=== PATIENT | male | born 1990 | race Caucasian/White ===

== ENCOUNTER 2018-01-21 14:50 | Emergency (ER) | payer MEDICAID ==
--- NOTE | 2018-01-21 15:22 | EDPHY ---
H & P Stated Complaint: HEADACHE, DIZZY, "FEELING OFF" Time Seen by Provider: 01/21/18 15:20 HPI/ROS: CHIEF COMPLAINT: Headache, vision changes HISTORY OF PRESENT ILLNESS: The patient is a 27 y/o male complaining of a severe headache, peripheral vision changes, and the sensation of feeling disoriented. Symptoms began 4 hours ago while he was trying to play guitar. He noticed his peripheral vision "seemed [id number]," but he denies visual field cuts. He began to feel dizzy and faint and noticed a "pounding" headache across his forehead. He has associated nausea and belching. He denies vomiting, photophobia, recent illness, cough, cold, diarrhea, abdominal pain, fever, recent trauma. He went to urgent care for evaluation and was referred here for evaluation. He says he cannot remember the last time he had a headache and denies history of migraines. REVIEW OF SYSTEMS: A ten point review of systems was performed and is negative with the exception of the items mentioned in the HPI. Past medical history: Denies Past surgical history: Denies Family history: Noncontributory Social history: Nonsmoker. No recent alcohol use. No illicit drugs. Plays [employer] for work. General Appearance: Alert. Vital signs reviewed. Blood pressure 143/82. Eyes: Pupils equal and round, no conjunctival injection, no discharge. Anicteric. No nystagmus. ENT, Mouth: Mucous membranes are moist, no oropharyngeal erythema or edema. Neck: No lymphadenopathy, supple. Respiratory: Lungs are clear to auscultation; no wheezes, rales, or rhonchi. Cardiovascular: Regular rate and rhythm; no murmur, rub, or gallop. Gastrointestinal: Abdomen is soft and nontender, no masses or organomegaly. Skin: Warm and dry, no rashes on exposed skin, normal color. Back: Nontender to palpation over the thoracolumbar spine. No CVAT. Extremities: No lower extremity edema, no calf tenderness or swelling. Neurological: Alert and oriented. Moving all four extremities easily and equally. Cranial nerves II through XII are examined and are intact (visual acuity not tested). Strength is 5 over 5 bilaterally with testing of all major motor groups. Sensation is intact to light touch over all 4 extremities. Deep tendon reflexes are 2+ in the biceps and knees bilaterally. Gait is normal. [id number] is performed accurately. Psychiatric: Normal affect. - Personal History Current Tetanus/Diphtheria Vaccine: Unsure Current Tetanus Diphtheria and Acellular Pertussis (TDAP): Unsure - Medical/Surgical History Hx Asthma: No Hx Chronic Respiratory Disease: No Hx Diabetes: No Hx Cardiac Disease: No Hx Renal Disease: No Hx Cirrhosis: No Hx Alcoholism: No Hx HIV/AIDS: No Hx Splenectomy or Spleen Trauma: No Other PMH: DENIES - Social History Smoking Status: Never smoked Constitutional: Initial Vital Signs Temperature (C) 36.9 C 01/21/18 14:53 Heart Rate 73 01/21/18 14:53 Respiratory Rate 18 01/21/18 14:53 Blood Pressure 143/82 H 01/21/18 14:53 O2 Sat (%) 96 01/21/18 14:53 O2 Delivery Mode Room Air Allergies/Adverse Reactions: No Known Allergies Allergy (Unverified 01/21/18 14:56) Home Medications: Medication Instructions Recorded NK [No Known Home Meds] 01/21/18 Medical Decision Making - Diagnostics Imaging: Discussed imaging studies w/ housecalls nurse Radiologist, I viewed and interpreted images myself ED Course/Re-evaluation: This is a healthy 27 y/o male who presents with a 4-hour history of severe headache, vision changes, and dizziness. He has a normal neuro exam. Presentation most likely indicates a migraine. Plan for IV, labs, symptomatic management. 10mg IV Reglan, 25mg IV Benadryl, 30mg IV Toradol, and 1L IV NS ordered. Recommended head CT, which the patient declined. Reassessed patient. 5:20 p.m.. Awake and alert, moving all 4 extremities spontaneously and equally. He states that his headache is much improved but not entirely gone. Nausea is gone. Will add Tylenol. 1800: Reassessed patient. He tells me his headache actually never improved earlier and while sitting here currently he has pain as severe as when he first came in. I again suggested a CT head to rule out subarachnoid hemorrhage or other causes of headache, which he agreed to this time. He has requested one pill of Vicodin for pain, which I have ordered. Head CT is negative. Head CT in this time frame is quite accurate for SAH, but not 100%. I explained this to him. Reassessed patient and discussed findings. He continues to complain of pain and has requested an additional tab or [place] as well as a BGL test. He is concerned that his symptoms could be related to abnormal blood sugar--I do not think so and explained this to him, but he would like to have his blood sugar tested. I am complying with this request. BGL is normal. Patient is requesting to leave the department. He will be discharged with standard headache care and follow up instructions. Return precautions discussed. 2000: After discharge, we received a phone call from the patient requesting a written prescription for Vicodin. He was informed we are unable to do this, but can evaluate him in the ED at any point. Differential Diagnosis: Headache including but not limited to subarachnoid hemorrhage, migraine headache , tension headache and infectious causes such as meningitis, pharyngitis and sinusitis. I also considered drug seeking behavior, given his post-discharge phone call and request for opiates. - Data Points Medications Given: Discontinued Medications Acetaminophen (Tylenol) 1,000 mg PO EDNOW ONE Stop: 01/21/18 17:19 Last Admin: 01/21/18 17:34 Dose: 1,000 mg Hydrocodone Bitart/Acetaminophen ([place] 5/325) 1 tab PO EDNOW ONE Stop: 01/21/18 18:09 Last Admin: 01/21/18 18:19 Dose: 1 tab Hydrocodone Bitart/Acetaminophen ([place] 5/325) 1 tab PO EDNOW ONE Stop: 01/21/18 18:54 Last Admin: 01/21/18 18:56 Dose: 1 tab Diphenhydramine HCl (Benadryl Injection) 25 mg IVP EDNOW ONE Stop: 01/21/18 15:46 Last Admin: 01/21/18 16:26 Dose: 25 mg Sodium Chloride (Ns) 1,000 mls @ 0 mls/hr IV ONCE ONE; Wide Open PRN Reason: Protocol Stop: 01/21/18 15:46 Last Admin: 01/21/18 16:20 Dose: 1,000 mls Ketorolac Tromethamine (Toradol) 30 mg IVP EDNOW ONE Stop: 01/21/18 15:46 Last Admin: 01/21/18 16:21 Dose: 30 mg Metoclopramide HCl (Reglan Injection) 10 mg IVP EDNOW ONE Stop: 07/24/18 15:46 Last Admin: 01/21/18 16:24 Dose: 10 mg Point of Care Test Results: Chemistry 01/21/18 18:52 POC Glucose 104 mg/dL H mg/dL (70-100) Departure - Departure Disposition: Home, Routine, Self-Care Clinical Impression: Headache Qualifiers: Headache type: unspecified Headache chronicity pattern: acute headache Intractability: not intractable Qualified Code(s): R51 - Headache Condition: Good Instructions: Acute Headache (ED) Additional Instructions: 1. Follow up with neurologist for evaluation of your headache in the next 1-2 days. 2. Follow up with a primary care provider to establish care locally. 3. Return to the ED for any worsening of condition. Referrals: Sae Wood DO [Doctor of Osteopathy] - As per Instructions [facility],. [Clinic] - As per Instructions Report Scribed for: Fiordaliza Leung Report Scribed by: Neeta Tang Date of Report: 01/21/18 Time of Report: 15:31 Physician Review and Approval Statement: 01/21/18 15:21 Portions of this note were transcribed by the medical chemist. I, Dr. Fiordaliza Leung, personally performed the history, physical exam, and medical decision- making; and confirmed the accuracy of the information in the transcribed note.
[2018-01-21] MEDS ORDERED: KETOROLAC 30 MG/1 ML SDV IVP ONE (15:45)
[2018-01-21] MEDS ORDERED: METOCLOPRAMIDE 10 MG/2 ML VIAL IVP ONE (15:45)
[2018-01-21] MEDS ORDERED: NS 1,000 ML IV ONE (15:45)
[2018-01-21] MEDS ORDERED: ACETAMINOPHEN 500 MG TAB PO ONE (17:18)
[2018-01-21] MEDS ORDERED: HYDROCODONE/APAP 5/325 TAB PO ONE ×2 (18:08→18:53)
[2018-01-21 19:18] VITALS: BP 136/77
== END 2018-01-21 19:18 | disposition home or self-care (01) ==
DX: R51 Headache (principal); E86.9 Volume depletion, unspecified
CPT/HCPCS: 96374; J1200; J1885; J2765